=== PATIENT | male | born 1940 | race Caucasian/White ===

== ENCOUNTER 2022-02-06 05:51 | Inpatient (IN) | payer MEDICARE, OTHER ==
[2022-01-30 12:12] LABS: BASOPHILS % (AUTO) 0.6 % (0-1); EOSINOPHILS # (AUTO) 0.1 X10'3 (0-0.9); EOSINOPHILS % (AUTO) 1.7 % (0-6); LYMPHOCYTES # (AUTO) 1.1 X10'3 (1.1-4.8); LYMPHOCYTES % (AUTO) 14.4 % (21-51); MEAN CORPUSCULAR HEMOGLOBIN 29.4 PG (27.0-31.0); MEAN CORPUSCULAR HGB CONC 32.4 g/dL (33.0-36.5); MEAN CORPUSCULAR VOLUME 90.8 FL (78-98); MEAN PLATELET VOLUME 7.1 FL (7.4-10.4); MONOCYTES % (AUTO) 12.2 % (2-12); NEUTROPHILS # (AUTO) 5.6 X10'3 (1.8-7.7); NEUTROPHILS % (AUTO) 71.1 % (42-75); PRE OP HEMATOCRIT 40.3 % (42.0-52.0); PRE OP PLATELET COUNT 309 X10'3 (140-440); RED BLOOD COUNT 4.43 X10'6 (4.70-6.10); RED CELL DISTRIBUTION WIDTH 14.4 % (11.5-14.5)
[2022-01-30 12:24] LABS: ALBUMIN 3.4 G/DL (3.4-5.0); ALBUMIN/GLOBULIN RATIO 0.9 (1.1-1.5); ALKALINE PHOSPHATASE 91 IU/L (46-116); BLOOD UREA NITROGEN 24 MG/DL (7-18); BUN/CREATININE RATIO 27.6 (5.4-32.0); CALCIUM 8.7 MG/DL (8.5-10.1); CHLORIDE 106 MMOL/L (99-107); CREATININE 0.87 MG/DL (0.60-1.10); PRE OP ALT 27 U/L (30-65); PRE OP ANION GAP 8 (8-16); PRE OP AST 15 U/L (10-37); PRE OP BILIRUB, TOTAL 0.5 MG/DL (0.0-1.0); PRE OP GLUCOSE 89 MG/DL (70-104); PRE OP POTASSIUM 4.3 MMOL/L (3.4-5.1); PRE OP SODIUM 141 MMOL/L (135-145); TOTAL CARBON DIOXIDE 26.7 MMOL/L (24-32); TOTAL PROTEIN 7.2 G/DL (6.4-8.2); eGFR 85 ML/MIN
[2022-02-06] VITALS (19 sets, daily range): BP systolic 138–162; BP diastolic 61–81
[~2022-02-06] VITALS: Ht 180.3 cm; Wt 91.5 kg
[~2022-02-06 05:51] MED LIST: ACET-1025 PO; CHOL500050 PO; FLO0.4C PO; HYDR-3972 PO; MELO-100 PO; ROSU10TA2 PO; ZOLP10TA PO; cefazolin/dext.iso 2gm/50ml IV ONE; famotidine 20mg tablet PO ONE; ringers solution, lacted 1,000 ML IV SCH; tranexamic acid 650mg tablet PO ONE; vancomycin 1,500 MG in NS 300ml IV soln IV ONE
[2022-02-06] MEDS ORDERED: ROPIVAcaine 0.5% (5mg/ml) 30ml vial ONE ×2 (07:33→08:55)
[2022-02-06] MEDS ORDERED: ketorolac trometh. 30mg/ml inj. ONE (07:33)
[2022-02-06] MEDS ORDERED: MIDAZolam 1 MG/ML 5ML VIAL ONE (08:50)
[2022-02-06] MEDS ORDERED: FENTANYL CITRATE/PF 50 MCG/1 ML VIAL ONE (08:50)
[2022-02-06] MEDS ORDERED: ROPIVAcaine 0.2% (10 MG/5 ML) BOLUS INJECTION INTERSCALE PRN (10:45)
[2022-02-06] MEDS ORDERED: meperidine/PF 25mg/ml syringe IV PRN ×3 (10:45)
[2022-02-06] MEDS ORDERED: proCHLORperazine 10 MG/2 ml inj IV PRN (10:45)
[2022-02-06] MEDS ORDERED: ondansetron/PF 4mg/2ml inj IV PRN ×2 (10:45→11:45)
[2022-02-06] MEDS ORDERED: morphine 4 MG/ML inj SYRINge IV PRN (10:45)
[2022-02-06] MEDS ORDERED: morphine 2 MG/ML inj. syringe IV PRN (10:45)
[2022-02-06] MEDS ORDERED: ROPIVAcaine 0.2%/PF PUMP/bolus 545 ML INTERSCALE SCH (10:45)
[2022-02-06] MEDS ORDERED: ringers solution, lacted 1,000 ML IV SCH (10:45)
--- NOTE | 2022-02-06 11:31 | NUR ---
Received from OR via BED, accompanied by Anesthesiologist DR VERNON and report given by Anesthesiologist AND [employer]DER. PT DROWSY, DENIES PAIN. RIGHT SHOULDER W/SHOULDER WRAP, BELIA CDI, POWDER PACK AND SLING. Addendum: 02/06/22 at 1155 by Macie Yates RN Amended: Links added.
[2022-02-06] MEDS ORDERED: non-formulary drug (Acetaminophen (Tylenol Extra Strength) 1 TAB) PO PRN (11:45)
[2022-02-06] MEDS ORDERED: acetaminophen 325mg tablet PO PRN (11:45)
[2022-02-06] MEDS ORDERED: diphenhydrAMINE 25mg capsule PO PRN ×2 (11:45)
[2022-02-06] MEDS ORDERED: magnesium hydroxide 30ml (MOM) UD suspension PO PRN (11:45)
[2022-02-06] MEDS ORDERED: oxyCODONE IR 5mg (immed. release) tablet PO PRN (11:45)
[2022-02-06] MEDS ORDERED: bisacodyl 10mg suppository rectal RC PRN (11:45)
[2022-02-06] MEDS ORDERED: zolpidem 5mg tablet PO SCH ×2 (11:45→20:57)
[2022-02-06] MEDS ORDERED: HYDROmorphone 1 mg/ml syringe IV PRN (11:45)
[2022-02-06] MEDS ORDERED: HYDROmorphone inj. 0.5 MG/0.5 ML DISP.SYRIN IV PRN (11:45)
[2022-02-06] MEDS ORDERED: HYDROcodone/acetaminophen 10/325mg tab PO PRN (11:45)
--- NOTE | 2022-02-06 12:26 | NUR ---
Patient in room . I have received report from Macie TRAN and had the opportunity to ask questions and awaiting patients arrival
--- NOTE | 2022-02-06 12:51 | NUR ---
Report called to receiving nurse. Transferred via BED, 1 BAG OF Belongings SENT W/PT TO ROOM 345B, BLL, CALL LIGHT GIVEN, SIDE RAILS UP X 2. NURSES AID NOTIFIED OF PTS ARRIVAL, PTS NOTIFIED OF PTS TRANSFER. Special Issues communicated to receiving nurse. YES. Addendum: 02/06/22 at 1258 by Macie Yates RN Amended: Links added.
--- NOTE | 2022-02-06 13:00 | NUR ---
Patient in room [facility]. I have received report from Macie TRAN and had the opportunity to ask questions and assume patient care.
[2022-02-06] MEDS: acetaminophen 325mg tablet PO SCH ×2 (15:02→19:12)
[2022-02-06] MEDS: potassium cl 20mEq in 1/2 NS 1,000 ML IV SCH ×2 (15:02→20:59)
[2022-02-06] MEDS: ceFAZolin/D5W- 1GM premix 50 ML IV SCH (15:12)
[2022-02-06] MEDS: oxyCODONE IR 5mg (immed. release) tablet PO PRN (16:56)
--- NOTE | 2022-02-06 17:00 | NUR ---
Medication administration by Kasie YEPEZ by Александр Galarza RN
--- NOTE | 2022-02-06 17:14 | NUR ---
patient stable throughout post op vitals. Up in chair. voided 300mls. ON-Q in place on setting of 6. given pain meds see students note for back pain 05/21. . present in room. patient appears comfortable at time of report.
--- NOTE | 2022-02-06 18:17 | NUR ---
Patient in room [facility]B. I have received report from CHELSEA Bermudez and had the opportunity to ask questions and assume patient care.
--- NOTE | 2022-02-06 18:28 | NUR ---
Problems reprioritized. Patient report given, questions answered & plan of care reviewed with Yoana TRAN.
[2022-02-06] MEDS: HYDROcodone/acetaminophen 10/325mg tab PO SCH (19:11)
[2022-02-06] MEDS ORDERED: vancomycin/NS 1 GM ADD-VANTAGE 250 ML IV SCH (20:00)
[2022-02-06] MEDS ORDERED: sennosides 8.6mg tablet PO SCH (21:00)
[2022-02-06] MEDS ORDERED: tamsulosin 0.4mg capsule PO SCH (21:00)
[2022-02-07] VITALS: BP 129/67
[2022-02-07] MEDS: ceFAZolin/D5W- 1GM premix 50 ML IV SCH
[2022-02-07] MEDS: acetaminophen 325mg tablet PO SCH ×3 (02:00→08:00)
--- NOTE | 2022-02-07 02:35 | NUR ---
Patient complained of itching associated with rash to chest area; benedryl administered per MD order. Will continue to monitor.
[2022-02-07] MEDS: oxyCODONE IR 5mg (immed. release) tablet PO PRN (02:38)
[2022-02-07 04:00] VITALS: BP 142/66
[2022-02-07] MEDS: potassium cl 20mEq in 1/2 NS 1,000 ML IV SCH (05:47)
[2022-02-07 06:17] LABS: BASOPHILS % (AUTO) 0.5 % (0-1); EOSINOPHILS # (AUTO) 0.1 X10'3 (0-0.9); EOSINOPHILS % (AUTO) 1.1 % (0-6); HEMATOCRIT 32.2 % (42.0-52.0); HEMOGLOBIN 10.5 g/dl (14.0-17.9); LYMPHOCYTES # (AUTO) 1.2 X10'3 (1.1-4.8); LYMPHOCYTES % (AUTO) 13.7 % (21-51); MEAN CORPUSCULAR HGB CONC 32.7 g/dL (33.0-36.5); MEAN CORPUSCULAR VOLUME 91.9 FL (78-98); MEAN PLATELET VOLUME 7.5 FL (7.4-10.4); MONOCYTES # (AUTO) 1.1 X10'3 (0-0.9); MONOCYTES % (AUTO) 12.8 % (2-12); NEUTROPHILS # (AUTO) 6.1 X10'3 (1.8-7.7); NEUTROPHILS % (AUTO) 71.9 % (42-75); PLATELET COUNT 257 X10'3 (140-440); RED CELL DISTRIBUTION WIDTH 14.3 % (11.5-14.5); WHITE BLOOD COUNT 8.4 X10'3 (4.5-11.0)
--- NOTE | 2022-02-07 06:21 | NUR ---
Problems reprioritized. Patient report given, questions answered & plan of care reviewed with CHELSEA Bermudez.
[2022-02-07 06:25] LABS: CHLORIDE 110 MMOL/L (99-107); POTASSIUM 4.1 MMOL/L (3.5-5.1); SODIUM 141 MMOL/L (135-145)
[2022-02-07 06:26] LABS: ANION GAP 7 (8-16); TOTAL CARBON DIOXIDE 24.2 MMOL/L (24-32)
--- NOTE | 2022-02-07 06:42 | NUR ---
Patient in room [facility]. I have received report from Yoana TRAN and had the opportunity to ask questions and assume patient care.
[2022-02-07] MEDS ORDERED: atorvastatin 20mg tablet PO SCH (08:00)
[2022-02-07] MEDS ORDERED: naproxen 500mg tablet PO PRN (08:00)
[2022-02-07] MEDS ORDERED: cholecalciferol (vitamin D3) 1,000 unit (25mcg) tablet PO SCH (08:00)
[2022-02-07] MEDS: HYDROcodone/acetaminophen 10/325mg tab PO SCH (08:04)
[2022-02-07] MEDS ORDERED: aspirin 325mg tablet PO SCH (08:30)
--- NOTE | 2022-02-07 08:48 | NUR ---
patient seen by Dr Santos is for Discharge. Awaiting DC instructions.
[2022-02-07 09:05] VITALS: BP 151/52
--- NOTE | 2022-02-07 11:15 | NUR ---
Joint Surgery Consult: Pt s/p R shoulder surgery this admit. Pt/ seen by MANNY for written/verbal high protein ed w/ RD contact information provided. MANNY encouraged pt/ to contact dietitian's office if further questions/concerns. Addendum: 02/07/22 at [address] Amended: Links added.
--- NOTE | 2022-02-07 11:56 | NUR ---
Student Medication Administration: For this medication-pass time frame, all medication were reviewed, dispensed, administered and documented per hospital policy by karen Bellamy student.
--- NOTE | 2022-02-07 11:56 | NUR ---
Student documentation: I have reviewed and agree with all interventions, assessments performed and documented by Mia, nursing faculty.
--- NOTE | 2022-02-07 11:58 | NUR ---
patient seen by Akanksha castellanos NP dressing to ON-Q bulb changed as was leaking around site. All DC instructions given to patient and spouse. ON Q ball in place. patient stated understanding with regards how to use. Dressing CDI and sling in place . Ice packs given to spouse. patient DC home via private car in stable condition 1200hrs.
[2022-02-08] MEDS ORDERED: acetaminophen 325mg tablet PO PRN (11:45)
== END 2022-02-07 11:58 | disposition home or self-care (01) | DRG 483 ==
LOC: PAS 05:51 → EDSTATUS 08:45 → SUR 3N 11:47 → UNDOADMIN 12:51 → SUR 3N 12:51
PROVIDERS: ADMIT Orthopaedic Surgery; ATTEND Orthopaedic Surgery
PROC: 0LS30ZZ Reposition Right Upper Arm Tendon, Open Approach (ICD-10-PCS; 2022-02-06)
PROC: 3E0T3BZ Introduction of Anesthetic Agent into Peripheral Nerves and Plexi, Percutaneous Approach (ICD-10-PCS; 2022-02-06)
PROC: 0RRJ00Z Replacement of Right Shoulder Joint with Reverse Ball and Socket Synthetic Substitute, Open Approach (ICD-10-PCS; principal; 2022-02-06 08:46)
DX: M19.011 Primary osteoarthritis, right shoulder (principal)
CPT/HCPCS: 36415; 80051; 80053; 82948; 85025; 87081; 93005; 97116; 97161; A4565; A4618; A7000; C1776; G0378; J0690; J1885; J2250; J2795; J3010; J3370; J3480; J3490; J7040; J7120; Q0163; U0003; U0005

== ENCOUNTER 2025-09-25 08:40 | Outpatient (CLI) | payer MEDICARE ==
[~2025-09-25 08:40] MED LIST changes: -FLO0.4C PO; -HYDR-3972 PO; +TAMS-55 PO; +ZOLP-679 PO; -ZOLP10TA PO; -cefazolin/dext.iso 2gm/50ml IV ONE; -famotidine 20mg tablet PO ONE; -ringers solution, lacted 1,000 ML IV SCH; -tranexamic acid 650mg tablet PO ONE; -vancomycin 1,500 MG in NS 300ml IV soln IV ONE
--- NOTE | 2025-09-25 10:44 | RADIOLOGY REPORT ---
EXAM: MR MRI LUMBAR SPINE CLINICAL HISTORY: LOW BACK PAIN COMPARISON: None Technique: MRI of the lumbar spine was performed without contrast. Findings: Status post posterior decompression from L2 to L5. Vertebral body height is maintained. Mild retrolisthesis of L2 on L3 and L3 on L4. Mild scoliosis. Extensive degenerate endplate changes with mild edema. The conus medullaris is normal in position and signal intensity. L1-L2: Eccentric right-sided disc bulge with facet arthropathy and ligamentum flavum thickening. Mild bilateral foraminal stenosis. No significant spinal canal narrowing. L2-L3: Status post decompression. Disc bulge and facet arthropathy. Mild bilateral foraminal stenosis. No significant spinal canal narrowing. L3-L4: Status post decompression. Disc bulge and facet arthropathy. Moderate bilateral from stenosis. No significant spinal canal narrowing. L4-L5: Status post decompression. Disc bulge with facet arthropathy. Severe bilateral foramina stenosis from the no significant spinal canal narrowing. L5-S1: Disc bulge with facet arthropathy and ligamentum flavum thickening. [id number] bilateral foramina stenosis. No significant spinal canal narrowing.. IMPRESSION: Status post posterior decompression from L2 to L Multilevel degenerative changes of the lumbar spine as described above.
== END 2025-09-25 23:59 | disposition home or self-care (01) ==
LOC: MRI02 08:40
PROVIDERS: ATTEND Physical Medicine & Rehabilitation
DX: M51.17 Intervertebral disc disorders with radiculopathy, lumbosacral region (principal); M54.59 Other low back pain; M46.1 Sacroiliitis, not elsewhere classified; M48.07 Spinal stenosis, lumbosacral region; M47.27 Other spondylosis with radiculopathy, lumbosacral region
CPT/HCPCS: 72148